=== PATIENT | male | born 1985 | race Caucasian/White ===

== ENCOUNTER 2024-01-25 20:13 | Emergency (ER) | payer OTHER, SELFPAY ==
[2024-01-25 20:16] VITALS: BP 144/82
--- NOTE | 2024-01-25 22:35 | ED.GENMED ---
History of Present Illness
General
Chief Complaint: Musculo-Skeletal Complaint
Time Seen by Provider: 01/25/24 22:25
Travel History
Have you had any contact with someone who has COVID-19?: No
Do you have any symptoms of coronavirus? Fever > 100 degrees, chills, cough, shortness of breath, sore throat, loss of taste or smell, muscle aches, or headache?: No
History of Present Illness
History of Present Illness:
38-year-old male presents the emergency department for evaluation of increasing right medial foot pain ongoing for the past week. Began after running a 5K as he has continued to run the pain is worsened to the point that he is nearly unable to bear
weight.
Past History
Past History
ED Past Medical History: Other (Migraines)
ED Past Surgical History: Other ([place] teeth extraction)
Social History
Tobacco: Non-smoker
Alcohol: None
Drug: None
Personal:
Living: with family
Employment: Employed
Review of Systems
Review of Systems
Allergies reviewed?: Yes
All Other Systems: ROS reviewed and negative except as documented in HPI and ROS
Phy Exam
Physical Exam
Physical Exam:
GEN: Well appearing, NAD, WDWN
HEENT: Oral mucosa moist, no scleral icterus
Cardiac: Regular rate
Lung: No respiratory distress, no tachypnea
MSK: No gross deformity or injuries. Right foot appears atraumatic. Focal bony tenderness to the inferior medial aspect of the navicular bone, no calcaneal tenderness, no pain with passive stretch
Skin: Good color, no pallor or jaundice, no rashes
Neuro: AO x3, moves all extremities freely
Psych: Calm, cooperative
Course
Orders/Labs/Results
Orders:
Orders
01/25/24 20:18
CR Foot - Right Min 3 Views Urgent
Comment:
Reason For Exam: pain right foot
Vital Signs
Initial and Last Documented VS:
Initial Vital Signs
Temp Pulse Resp BP Pulse Ox
98.6 F 75 20 144/82 99
01/25/24 20:16 01/25/24 20:16 01/25/24 20:16 01/25/24 20:16 01/25/24 20:16
Last Documented Vital Signs
Temp Pulse Resp BP Pulse Ox
98.6 F 75 20 144/82 99
01/25/24 20:16 01/25/24 20:16 01/25/24 20:16 01/25/24 20:16 01/25/24 20:16
MDM/Problems Addressed
MDM/Problems Addressed:
X-rays of the right foot independently turbid by me are negative for acute bony pathology. Given focal bony tenderness after prolonged exertion this is likely a stress response/stress fracture. Provided with orthopedic boot, recommend NSAIDs and
ice for pain, discussed supportive care and return parameters, recommend outpatient orthopedic evaluation if pain persists despite activity modifications
*Critical Care Note
Total Time (30-74mins, 75-104mins- exclusive of procedures): Not Applicable
ED Attending Note
-
Portions of this chart may have been created with voice recognition software.� Occasional wrong word or��sound alike� substitutions may have occurred due to the inherent limitations of voice recognition software.
Discharge Plan
Departure
Patient Disposition: Home (Routine Discharge)
Date of Disposition: 01/25/24
Time of Disposition: 22:35
Patient with high blood pressure during this ER visit?: No
Discharge Problem:
Stress fracture of navicular bone of right foot
Instructions: Stress Fracture ED
Prescriptions:
No Action
ondansetron 4 mg tablet,disintegrating
4 mg PO TID PRN (Reason: nausea and vomiting) 5 Days Qty: 20 0RF
Referrals:
Carlos Eduardo Rodriguez DPM [Active] -
Vipul Villatoro MD [Family Provider] -
Activity Restrictions/Additional Instructions:
Your x-rays do not show any obvious bony abnormality however your symptoms and location of pain are suspicious for a stress fracture of the foot. Please follow-up with orthopedics in 1 to 2 weeks for reevaluation. Avoid exertion or jumping on the
foot, use the orthopedic boot when walking and ice the foot often. Please take ibuprofen 400 to 600 mg every 6-8 hours for pain control
Interventions
Interventions:
*Risk Screen - Suicide Last Done: 01/25/24 20:16
*General Assessment Last Done: 01/25/24 20:16
*Neglect/Abuse Screening Last Done: 01/25/24 20:16
ED- Fall Risk Assessment Last Done: 01/25/24 22:53
*ED COVID-19 Vaccine History Last Done: 01/25/24 22:53
*Nursing Disposition Last Done: 01/25/24 22:53
ED-Musculoskeletal Assessment Last Done: 01/25/24 22:02
Discharge Date and Time
Discharge Date/Time: 01/25/24 22:54
Print Language: [id number]
== END 2024-01-25 22:54 | disposition home or self-care (01) ==
LOC: EMR 20:13
PROVIDERS: EMERGENCY PHYSICIAN Emergency Medicine; FAMILY PHYSICIAN Family Medicine
DX: S92.251A Displaced fracture of navicular [scaphoid] of right foot, initial encounter for closed fracture (principal); X58.XXXA Exposure to other specified factors, initial encounter; Y93.02 Activity, running; G43.909 Migraine, unspecified, not intractable, without status migrainosus
CPT/HCPCS: 99283; 29515; 73630